=== PATIENT | male | born 1980 | race Caucasian/White ===

== ENCOUNTER 2022-04-08 15:13 | Outpatient (CLI) | payer OTHER ==
--- NOTE | 2022-04-08 20:15 | MRI Report ---
PROCEDURE: Cervical Spine W/O INDICATIONS: CERVICALGIA TECHNIQUE: Noncontrast sagittal T1 spin echo and T2 fast spin echo, sagittal STIR, foraminal oblique sagittal T2 fast spin echo, and axial gradient echo or T2 fast spin echo through the cervical spine. COMPARISON: None. FINDINGS: Image quality: Excellent. Alignment and Curvature: Normal cervical spine vertebral body height and alignment. Bone Marrow: Marrow demonstrates normal overall signal. Spinal Cord: Visualized spinal cord has normal size and signal. No cerebellar tonsillar herniation. Regional Soft Tissues: No paravertebral masses. Prevertebral soft tissues are normal in thickness. C2-C3: No spinal canal or neural foraminal stenosis. C3-C4: No spinal canal or neural foraminal stenosis. C4-C5: Posterior disc-osteophyte complex flattens the ventral cord slightly. No neural foraminal keysha nosis. C5-C6: No spinal canal or neural foraminal stenosis. C6-C7: No spinal canal or neural foraminal stenosis. C7-T1: No spinal canal or neural foraminal stenosis. IMPRESSION: No imaging explanation for neck pain identified. Reviewed by: Simba Hilario MD on 04/08/2022 8:14 PM PDT Approved by: Simba Hilario MD on 04/08/2022 8:14 PM PDT Station ID: [id number]
== END 2022-04-08 15:14 | disposition home or self-care (01) ==
LOC: DI 15:13
PROVIDERS: ATTEND Nurse Practitioner Family
DX: M54.2 Cervicalgia (principal)

== ENCOUNTER 2024-04-27 15:26 | Emergency (ER) | payer OTHER ==
[2024-04-27 16:07] LABS: BASOPHILS # (AUTO) 0.1 10^3/uL (0.0-0.1); EOSINOPHILS # (AUTO) 0.5 10^3/uL (0.0-0.7); EOSINOPHILS % (AUTO) 6.7 %; HCT - HEMATOCRIT 43.9 % (42.0-52.0); HGB - HEMOGLOBIN 15.2 g/dL (14.0-18.0); LYMPHOCYTES # (AUTO) 1.8 10^3/uL (1.5-3.5); LYMPHOCYTES % (AUTO) 25.4 %; MEAN CORPUSCULAR HEMOGLOBIN 32.5 pg (27.0-31.0); MEAN CORPUSCULAR HGB CONC 34.6 g/dL (32.0-36.0); MONOCYTES # (AUTO) 0.7 10^3/uL (0.0-1.0); MONOCYTES % (AUTO) 9.7 %; NEUTROPHILS # (AUTO) 4.1 10^3/uL (1.5-6.6); NEUTROPHILS % (AUTO) 56.9 %; PLT - PLATELET COUNT 219 10^3/uL (130-450); RED BLOOD COUNT 4.67 10^6/uL (4.70-6.10); RED CELL DISTRIBUTION WIDTH 11.7 % (12.0-15.0); WHITE BLOOD COUNT 7.1 x10^3/uL (4.8-10.8)
[2024-04-27 16:27] LABS: ALBUMIN 4.7 g/dL (3.2-5.5); ALBUMIN/GLOBULIN RATIO 1.6 (1.0-2.2); ALKALINE PHOSPHATASE 68 IU/L (42-121); ALT ALANINE AMINOTRANSFERASE 83 IU/L (10-60); AST ASPARTATE AMINOTRANSFERASE 41 IU/L (10-42); BILIRUBIN,TOTAL 0.6 mg/dL (0.2-1.0); BUN - BLOOD UREA NITROGEN 10 mg/dL (6-20); CALCIUM 9.7 mg/dL (8.5-10.3); CARBON DIOXIDE - CO2 33 mmol/L (21-32); CHLORIDE 102 mmol/L (101-111); CREATININE 1.2 mg/dL (0.6-1.3); GFR - MDRD 66 (>89); GLUCOSE 125 mg/dL (74-104); LIPASE 42 U/L (11-82); POTASSIUM 3.7 mmol/L (3.5-4.5); SODIUM 139 mmol/L (135-145); TOTAL PROTEIN 7.6 g/dL (6.4-8.9)
--- NOTE | 2024-04-27 16:53 | XRAY Report ---
PROCEDURE: Chest 1V INDICATIONS: Chest pain TECHNIQUE: One view of the chest was acquired. COMPARISON: None. FINDINGS: Surgical changes and devices: None. Lungs and pleura: No pleural effusions or pneumothorax. Lungs are clear. Mediastinum: Mediastinal contours appear normal. Heart size is normal. Bones and chest wall: No suspicious bony lesions. Overlying soft tissues appear unremarkable. IMPRESSION: No acute cardiopulmonary process. Reviewed by: Lynn Gutierrez MD on 04/27/2024 4:52 PM PDT Approved by: Lynn Gutierrez MD on 04/27/2024 4:52 PM PDT Station ID: [id number]
[2024-04-27 17:10] LABS: TROPONIN I HIGH SENSITIVITY < 2.3 ng/L (2.3-19.7)
--- NOTE | 2024-04-27 19:55 | ED Physician Documentation ---
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 It is a very sharp focal sternal pain that is worse if he takes deep breaths or palpates his own chest. He is not short of breath with it. [place] had been told that he had Q waves on EKG and has a nuclear stress scheduled. No pedal edema or calf pain. No recent travel. I note that he is tachycardic but he says his heart rate is usually around 110 or so. PD PAST MEDICAL HISTORY - Past Medical History Past Medical History: No Cardiovascular: Hypertension - Past Surgical History Past Surgical History: No - Allergies Allergies/Adverse Reactions: Allergies Allergy/AdvReac Type Severity Reaction Status Date / Time No Known Drug Allergies Allergy Verified 04/27/24 15:40 - Social History Does the pt smoke?: No Smoking Status: Never smoker Does the pt drink ETOH?: No Does the pt have substance abuse?: No - Immunizations Immunizations are current?: Yes PD ED PE NORMAL - Vitals Vital signs reviewed: Yes (Mild resting tachycardia) - General General: Alert and oriented X 3, No acute distress - HEENT HEENT: PERRL, EOMI - Neck Neck: Supple, no meningeal sign, No bony TTP - Cardiac Cardiac: RRR, No murmur, Other (Chest pain is reproducible with right sided palp ation of the costochondral junction.) - Respiratory Respiratory: No respiratory distress, Clear bilaterally - Abdomen Abdomen: Non tender - Extremities Extremities: No edema, No calf tenderness / cord - Neuro Neuro: Alert and oriented X 3, Normal speech Results - Vitals Vitals: Vital Signs - 24 hr 04/27/24 15:36 Temperature 36.7 C Heart Rate 120 H Respiratory 20 Rate Blood Pressure 148/76 H O2 Saturation 94 - EKG (time done) 1545 EKG releavant findings:: EKG personally interpreted by author of this note. Relevant findings are: Rate: Rate (enter#) (112) Rhythm: NSR Wilson: Normal Intervals: Normal AR QRS: Normal Ischemia: Q waves. No: ST elevation c/w ischemia, ST depression Computer interpretation: Agree with computer - Labs Labs: Laboratory Tests 04/27/24 04/27/24 04/27/24 16:02 16:02 17:14 WBC 7.1 RBC 4.67 L Hgb 15.2 Hct 43.9 MCV 94.0 MCH 32.5 H MCHC 34.6 RDW 11.7 L Plt Count 219 MPV 9.0 Neut # (Auto) 4.1 Lymph # (Auto) 1.8 [place] # (Auto) 0.7 Eos # (Auto) 0.5 Baso # (Auto) 0.1 Absolute Nucleated RBC 0.00 Nucleated RBC % 0.0 D-Dimer < 200.0 L Sodium 139 Potassium 3.7 Chloride 102 Carbon Dioxide 33 H Anion Gap 4.0 L BUN 10 Creatinine 1.2 Estimated GFR (MDRD) 66 L Glucose 125 H Calcium 9.7 Total Bilirubin 0.6 AST 41 ALT 83 H Alkaline Phosphatase 68 Troponin I High Sens < 2.3 L Total Protein 7.6 Albumin 4.7 Globulin 2.9 Albumin/Globulin Ratio 1.6 Lipase 42 PD Medical Decision Making - ED course ED course: This is most consistent with costochondritis. His EKG does not show any acute ischemia and it sounds like per his description the Q waves are old and he has appropriate follow-up for that. His troponin is negative and because of the tachycardia I checked a D-dimer which was negative and rules out thromboembolic disease. Heart score is 1 for BMI Departure - Departure Disposition: 01 Home, Self Care Clinical Impression: Chest wall pain Condition: Good Record reviewed to determine appropriate education?: Yes Instructions: ED Chest Pain NonCardiac Comments: As discussed, it seems that this pain is likely from your chest wall (chondral chondritis. It is appropriate for you to have the stress test as scheduled and return for new or worsening symptoms.
[2024-04-27 20:13] VITALS: BP 123/87; O2SAT 98
== END 2024-04-27 20:04 | disposition home or self-care (01) ==
LOC: ED 15:26
DX: R07.89 Other chest pain (principal); I10 Essential (primary) hypertension
CPT/HCPCS: 36415; 80053; 83690; 84484; 85025; 85379; 93005; 99283; 99284